=== PATIENT | female | born 1975 | race Two or more races ===

== ENCOUNTER → 2022-10-31 | Emergency (ER) | payer OTHER ==
[~2022-10-31] VITALS: Ht 167.6 cm; Wt 65.8 kg
[~2022-10-31] MED LIST: LEVALBUTEROL TA15 GM; LEVOTHYROXINE75 MCG; PULMICORT FLEX90 MCG
== END | disposition left against medical advice (07) ==
LOC: ER 20:17
DX: Z53.21 Procedure and treatment not carried out due to patient leaving prior to being seen by health care provider (principal)